=== PATIENT | male | born 1960 | race Caucasian/White ===

== ENCOUNTER 2017-09-24 13:33 | Inpatient (IN) | payer BC ==
[~2017-09-24] VITALS: Ht 167.6 cm; Wt 123.9 kg
[2017-09-24 14:00] LABS: BASOPHIL (%) 0.2 % (0-1); EOSINOPHIL (%) 0.2 % (0-5); HEMATOCRIT 38.6 % (38.0-50.0); HEMOGLOBIN 12.9 G/DL (12.5-16.6); IMMATURE GRANULOCYTE (%) 0.4 % (0.0-0.7); LYMPHOCYTE (%) 3.5 % (15-42); LYMPHOCYTE COUNT 0.4 K/uL (1.0-2.8); MCH 31.8 PG (29.0-34.0); MCHC 33.4 G/DL (30.0-36.0); MCV 95.1 FL (86-99); MONOCYTE (%) 1.8 % (3-12); MONOCYTE COUNT 0.2 K/uL (0-0.8); NEUTROPHIL (%) 93.9 % (45-76); NEUTROPHIL COUNT 11.7 K/uL (1.8-6.4); PLATELET COUNT 213 K/uL (156-360); RBC DIS.WIDTH-SD 49.5 % (39-53); RED BLOOD COUNT 4.06 M/uL (4.00-5.50); WHITE BLOOD COUNT 12.5 K/uL (4.1-10.2)
[2017-09-24 14:06] LABS: INTER. NORMALIZED RATIO 1.1
[2017-09-24 14:08] LABS: PTT 27.1 SEC (25-37)
[2017-09-24 14:09] LABS: CHLORIDE 102 mEq/L (99-109); POTASSIUM 4.4 mEq/L (3.7-5.4); SODIUM 140 mEq/L (136-147)
[2017-09-24 14:10] LABS: GLUCOSE 112 mg/dL (70-99)
[2017-09-24 14:14] LABS: GFR ESTIMATE (CALCULATED) > 59 mL/min/ (58.99-99999)
[2017-09-24 14:15] LABS: UREA NITROGEN (BUN) 19 mg/dL (9-23)
[2017-09-24 14:21] LABS: TROP-I INTERPRETATION NEGATIVE; TROPONIN-I < 0.01 ng/mL (0.0-0.30)
[2017-09-24] MEDS ORDERED: NEXIUM 24HR20 M2 PO (17:42)
[2017-09-24] MEDS ORDERED: LO-DOSE ASPIRIN81 M2 PO (17:42)
[2017-09-24] MEDS ORDERED: GABAPENTIN300 MG PO (17:43)
[2017-09-24] MEDS ORDERED: MAGNESIUM250 MG PO (17:43)
[2017-09-24] MEDS ORDERED: LISINOPRIL10 MG PO (17:43)
[2017-09-24] MEDS ORDERED: ATORVASTATIN CA20 MG PO (17:44)
[2017-09-24] MEDS ORDERED: HYDROCHLOROTHIA25 MG PO (17:44)
[2017-09-24] MEDS ORDERED: HYTRIN10 MG PO (17:44)
[2017-09-24 20:50] LABS: TROP-I INTERPRETATION NEGATIVE; TROPONIN-I < 0.01 ng/mL (0.0-0.30)
[2017-09-24 21:23] LABS: TOTAL PROTEIN 6.5 g/dL (6.4-8.3)
[2017-09-24 21:25] LABS: TOTAL BILIRUBIN 0.5 mg/dL (0.0-1.0)
[2017-09-24 21:26] LABS: ALKALINE PHOSPHATASE 91 IU/L (3-129)
[2017-09-24 21:28] LABS: AST (GOT) 44 IU/L (2-34); DIRECT BILIRUBIN 0.3 mg/dL (0.0-0.3)
[2017-09-24 21:29] LABS: ALT (GPT) 68 IU/L (3-49); LIPASE 20 U/L (1.0-51.0)
[2017-09-24 23:52] VITALS: BP 121/60
[2017-09-25 02:17] LABS: TROP-I INTERPRETATION NEGATIVE; TROPONIN-I 0.02 ng/mL (0.0-0.30)
[2017-09-25 03:55] VITALS: BP 137/68
[2017-09-25 05:11] LABS: HEMOGLOBIN 12.5 G/DL (12.5-16.6); MCH 30.9 PG (29.0-34.0); MCHC 32.9 G/DL (30.0-36.0); MCV 93.8 FL (86-99); PLATELET COUNT 241 K/uL (156-360); RBC DIS.WIDTH-CV 14.1 % (11.8-14.6); RBC DIS.WIDTH-SD 48.8 % (39-53); RED BLOOD COUNT 4.05 M/uL (4.00-5.50); WHITE BLOOD COUNT 14.8 K/uL (4.1-10.2)
[2017-09-25 05:39] LABS: CHLORIDE 99 MEQ/L (99-109); CREATININE 0.8 MG/DL (0.6-1.3); GFR ESTIMATE (CALCULATED) > 59 mL/min/ (58.99-99999); GLUCOSE 149 mg/dL (70-99); POTASSIUM 4.1 MEQ/L (3.7-5.4); SODIUM 136 MEQ/L (136-147); UREA NITROGEN (BUN) 19 mg/dL (9-23)
[2017-09-25 07:23] VITALS: BP 124/78
[2017-09-25 11:39] VITALS: BP 136/61
[2017-09-25 12:00] VITALS: BP 167/78
[2017-09-25] MEDS ORDERED: NITROSTAT0.4 MG SL (13:39)
== END 2017-09-25 16:45 | disposition home or self-care (01) | DRG 313 ==
LOC: EME 13:33 → 4SOUTH 18:44 → EDOF 18:44 → ENRESERV 18:46 → 4SOUTH 20:34
PROVIDERS: Emergency Medicine; Hospitalist
DX: R07.2 Precordial pain (principal); I10 Essential (primary) hypertension; E78.5 Hyperlipidemia, unspecified; G47.33 Obstructive sleep apnea (adult) (pediatric); Z91.19 Patient's noncompliance with other medical treatment and regimen; K21.9 Gastro-esophageal reflux disease without esophagitis; Z79.82 Long term (current) use of aspirin; I44.0 Atrioventricular block, first degree; Z98.890 Other specified postprocedural states; J98.11 Atelectasis; E66.01 Morbid (severe) obesity due to excess calories
CPT/HCPCS: 71045; 71275; 80048; 80076; 83690; 84484; 85025; 85027; 85610; 85730; 93005; 94660; 99281; 99284; J7030